=== PATIENT | female | born 1995 | race Caucasian/White ===

== ENCOUNTER → 2018-05-04 09:10 | Observation (INO) ==
[2018-05-04 08:37] LABS: Bilirubin,Urine Negative (Negative); Blood,Urine Negative (Negative); Clarity,Urine Cloudy (Clear); Color,Urine Yellow (Yellow); Glucose,Urine (UA) Normal (Normal); Ketones,Urine Negative (Negative); Leukocyte Esterase,Urine Large (Negative); Nitrite,Urine Negative (Negative); Protein,Urine Negative (Neg-Trace); Specific Gravity,Urine < 1.005 (1.010-1.025); Urobilinogen,Urine Normal (Normal)
[2018-05-04 08:46] LABS: Amphetamine Screen,Urine Negative ng/mL (Cutoff=1000); Barbiturate Screen,Urine Negative ng/mL (Cutoff=200); Benzodiazepines Screen,Urine Negative ng/mL (Cutoff=200); Cannabinoid Screen,Urine Negative ng/mL (Cutoff = 50); Cocaine Screen,Urine Negative ng/mL (Cutoff= 300); Opiate Screen,Urine Negative ng/mL (Cutoff=300); Phencyclidine Screen,Urine Negative ng/mL (Cutoff=25); Squamous Epithelial Cell,Urine Few per lpf (None-Few)
--- NOTE | 2018-05-04 09:09 | Discharge Summary ---
Date of Encounter: 05/04/18 Time of Encounter: 09:09 - Discharge Diagnosis (1) 33 weeks gestation of Priority: Primary Status: Acute Comments: admitted for observation (2) Vaginal discharge during Priority: Secondary Status: Acute Comments: Vaginosis panel collected and pending Qualifiers: Trimester: third trimester Qualified Code(s): O26.893 - Other specified related conditions, third trimester; N89.8 - Other specified noninflammatory disorders of vagina (3) Decreased movement Priority: Secondary Status: Acute Comments: Reactive nst Qualifiers: Fetus number: single or unspecified fetus Trimester: third trimester Qualified Code(s): O36.8130 - Decreased movements, third trimester, not applicable or unspecified (4) NST (non-stress test) reactive on surveillance Priority: Secondary Status: Acute Comments: FHR baseline 150 bpm moderate variability +15x15 accels no decels noted. No contractions noted. Cat. 1 tracing. - Discharge Medications Home Medications: Pnv No.95/Ferrous Fum/Folic AC [ Caplet] 125 mg PO DAILY 05/04/18 [History] Allergies/Adverse Reactions: Allergy/AdvReac Type Severity Reaction Status Date / Time No Known Allergies Allergy Verified 05/30/15 22:01 Data Procedures and tests throughout hospitalization: Laboratory Tests 05/04/18 05/04/18 07:50 07:50 Urine Color Yellow Urine Clarity Cloudy A Urine pH 7.0 Ur Specific Spring < 1.005 L Urine Protein Negative Urine Glucose (UA) Normal Urine Ketones Negative Urine Blood Negative Urine Nitrite Negative Urine Bilirubin Negative Urine Urobilinogen Normal Ur Leukocyte Esterase Large H Urine Microscopic WBC 3-5 H Ur Squamous Epith Cells Few Ur Culture Indicated? YES A Urine Opiates Screen Negative Ur Barbiturates Screen Negative Ur Phencyclidine Scrn Negative Ur Amphetamines Screen Negative U Benzodiazepines Scrn Negative Urine Cocaine Screen Negative U Marijuana (THC) Screen Negative Ur Drug Screen Interp See Below Labs on day of discharge: Labs from last 24 hours 05/04/18 05/04/18 07:50 07:50 Urine Color Yellow Urine Clarity Cloudy A Urine pH 7.0 Ur Specific Spring < 1.005 L Urine Protein Negative Urine Glucose (UA) Normal Urine Ketones Negative Urine Blood Negative Urine Nitrite Negative Urine Bilirubin Negative Urine Urobilinogen Normal Ur Leukocyte Esterase Large H Urine Microscopic WBC 3-5 H Ur Squamous Epith Cells Few Ur Culture Indicated? YES A Urine Opiates Screen Negative Ur Barbiturates Screen Negative Ur Phencyclidine Scrn Negative Ur Amphetamines Screen Negative U Benzodiazepines Scrn Negative Urine Cocaine Screen Negative U Marijuana (THC) Screen Negative Ur Drug Screen Interp See Below Date of admission: 05/04/18 07:22 Discharging clinician: Rosina Pelayo Anticipated date of discharge: 05/04/18 - Patient Status Disposition: Home, Self-Care Condition: Good Functional capacity at discharge: independent ambulation - Discharge Instructions Follow Up With: Fidel Horne DO [Partnered Physician] - - Diet and Activity Activity: increase activity as tolerated Diet: regular diet Hospital Course [employer] Hospital course: Patient is a 22 y/o at 33w3d presents to labor and delivery with complaints of decreased movement and brown vaginal discharge. Patient denies any contractions or LOF. Patient reports brown discharge started 2 days ago no itching, burning or odor. Patient has felt movement since being on the unit. Time Attestation: Total time spent providing and/or coordinating discharge services: Time Spent: Less than 30 minutes Exam - Constitutional General appearance IM: A&O X 3, pleasant, answers questions appropriately - Respiratory Respiratory exam: Present: CTAB - Cardiovascular Cardiovascular exam IM: Present: RRR, +S1, +S2 - Extremities Exam Extremities exam IM: Present: full ROM, normal capillary refill, normal inspection - Other Additional findings: speculum exam: Moderate amount of white discharge, no blood or brown discharge noted. Vaginosis panel collected. FHR 150 bpm moderate variability +15x15 accels no decels noted. No contractions Cat. 1 tracing - VTE Reasons for not Prescribing Prophylaxis: Treatment not Indicated - Low risk for VTE
[2018-05-04 10:45] LABS: Candida DNA Not Detected (Not Detect); Gardnerella DNA Not Detected (Not Detect); Trichomonas DNA Not Detected (Not Detect)
== END | disposition home or self-care (01) ==
LOC: 1NENULAB
PROVIDERS: ADMIT Advanced Practice Midwife; ATTEND Advanced Practice Midwife

== ENCOUNTER 2021-05-22 10:27 | Inpatient (IN) ==
[2021-05-22] MEDS ORDERED: Metoclopramide 10 MG/2 ML VIAL IVP PRN (10:44)
[2021-05-22] MEDS ORDERED: Famotidine 20 MG/2 ML VIAL IVP PRN (10:44)
[2021-05-22] MEDS ORDERED: Ondansetron 4 MG/2 ML VIAL IVP PRN (10:44)
[2021-05-22] MEDS ORDERED: Naloxone 0.4 MG/ML INJ IVP PRN (10:44)
[2021-05-22 11:55] LABS: Basophils % 0.2 %; Eosinophils # 0.1 K/mcL (0.0-0.6); Eosinophils % 0.7 %; Hematocrit 33.6 % (35.3-44.9); Hemoglobin 10.8 g/dL (11.5-15.4); Immature Granulocytes % 0.6 % (0-4); Lymphocytes # 2.9 K/mcL (0.6-4.6); Lymphocytes % 23.8 %; Mean Corpuscular HGB Conc 32.1 g/dL (31.6-35.5); Mean Corpuscular Hemoglobin 26.9 pg (28.0-33.3); Mean Corpuscular Volume 83.8 fL (83.0-100.0); Monocytes # 0.9 K/mcL (0.0-1.3); Monocytes % 7.5 %; Neutrophils # 8.2 K/mcL (1.6-8.9); Platelet Count 252 K/mcL (140-400); Red Blood Count 4.01 M/mcL (3.82-4.97); Red Cell Distribution Width 13.5 % (11.5-14.5); Segmented Neutrophils % 67.2 %; White Blood Count 12.2 K/mcL (4.3-11.1)
[2021-05-22 13:00] LABS: Amphetamine Screen,Urine Negative ng/mL (Cutoff=1000); Barbiturate Screen,Urine Negative ng/mL (Cutoff=200); Benzodiazepines Screen,Urine Negative ng/mL (Cutoff=200); Cannabinoid Screen,Urine Negative ng/mL (Cutoff = 50); Cocaine Screen,Urine Negative ng/mL (Cutoff= 300); Opiate Screen,Urine Negative ng/mL (Cutoff=300); Phencyclidine Screen,Urine Negative ng/mL (Cutoff=25)
[2021-05-22] MEDS ORDERED: Oxytocin 20 units/ LR 1000 mL 20 UNIT/1,000 ML BAG IVC SCH (13:30)
[2021-05-22 14:24] LABS: Influenza A PCR Negative (Negative); Influenza B PCR Negative (Negative); Resp. Syncytial Virus PCR Negative (Negative)
[2021-05-22 14:38] LABS: SARS-CoV-2 by PCR (In House) Negative (Negative)
[2021-05-22] MEDS: Ringers Solution, Lactated 1,000 ML IVC SCH (16:44)
[2021-05-22] MEDS ORDERED: Ropivacaine/PF 0.2% 20 ML VIAL EP ONE (17:50)
[2021-05-22] MEDS ORDERED: EPHEDrine 50 MG/ML VIAL IVP PRN (17:50)
[2021-05-22] MEDS ORDERED: *HR* FentaNYL (PF) 100 MCG/2 ML VIAL EP ONE (17:50)
[2021-05-22] MEDS ORDERED: Epidural Premix (fent/bupiv) 110 ML EP SCH (18:00)
[2021-05-22] MEDS: *HR* Nalbuphine 10 MG/ML AMPUL IV PRN (23:13)
[2021-05-23] MEDS: Ringers Solution, Lactated 1,000 ML IVC SCH (00:26)
[2021-05-23] MEDS: *HR* Nalbuphine 10 MG/ML AMPUL IV PRN (03:23)
[2021-05-23] MEDS ORDERED: Lidocaine 1% 20 ML MDV ONE (14:45)
[2021-05-23] MEDS ORDERED: Lidocaine 1% 20 ML MDV INFILT PRN (14:48)
[2021-05-23] MEDS ORDERED: Ondansetron ODT 4 MG TAB.RAPDIS SL PRN (16:24)
[2021-05-23] MEDS ORDERED: Rho Immune Globulin 1,500 UNIT SYRINGE IM PRN (16:24)
[2021-05-23] MEDS ORDERED: Lanolin 7 G OINT...G. TP PRN (16:24)
[2021-05-23] MEDS ORDERED: Benzocaine/Menthol 56 GM AEROSOL SPRAY TP PRN (16:24)
[2021-05-23] MEDS ORDERED: Oxytocin 20 units/ LR 1000 mL 20 UNIT/1,000 ML BAG IVC ONE (16:24)
[2021-05-23] MEDS ORDERED: Measles/Mumps/Rubella Vacc 0.5 ML VIAL SQ PRN (16:24)
[2021-05-23] MEDS ORDERED: Oxytocin 20 units/ LR 1000 mL 20 UNIT/1,000 ML BAG IVC SCH (16:24)
[2021-05-23] MEDS: Ibuprofen 600 MG TABLET PO SCH (18:50)
[2021-05-23] MEDS: Acetaminophen 325 MG TABLET PO SCH (21:01)
[2021-05-24] MEDS: Ibuprofen 600 MG TABLET PO SCH ×3 (01:11→17:18)
[2021-05-24] MEDS: Acetaminophen 325 MG TABLET PO SCH ×2 (05:09→17:18)
[2021-05-24 06:05] LABS: Basophils % 0.1 %; Eosinophils # 0.1 K/mcL (0.0-0.6); Eosinophils % 0.9 %; Hematocrit 22.6 % (35.3-44.9); Immature Granulocytes % 0.5 % (0-4); Lymphocytes # 2.4 K/mcL (0.6-4.6); Lymphocytes % 17.1 %; Mean Corpuscular HGB Conc 31.4 g/dL (31.6-35.5); Mean Corpuscular Hemoglobin 26.5 pg (28.0-33.3); Mean Corpuscular Volume 84.3 fL (83.0-100.0); Mean Platelet Volume 10.5 fL (9.4-12.4); Monocytes # 1.3 K/mcL (0.0-1.3); Monocytes % 9.5 %; Neutrophils # 9.9 K/mcL (1.6-8.9); Platelet Count 194 K/mcL (140-400); Red Blood Count 2.68 M/mcL (3.82-4.97); Red Cell Distribution Width 13.9 % (11.5-14.5); Segmented Neutrophils % 71.9 %; White Blood Count 13.8 K/mcL (4.3-11.1)
[2021-05-24 06:54] LABS: Hemoglobin 7.1 g/dL (11.5-15.4)
[2021-05-24 07:40] VITALS: BP 92/56; PULSE 90; TEMP 97.9; O2SAT 98
[2021-05-24] MEDS ORDERED: Prenatal Vit/FA 1 EACH TABLET PO SCH (09:00)
== END 2021-05-24 18:29 | disposition home or self-care (01) | DRG 768 ==
LOC: 1NENULAB 10:27 → 1NENUOBS 05-23 16:23
PROVIDERS: ADMIT Obstetrics & Gynecology; ATTEND Obstetrics & Gynecology